=== PATIENT | male | born 1955 | race Caucasian/White ===

== ENCOUNTER 2022-08-24 02:16 | Day surgery (SDC) | payer MEDICARE, SELFPAY ==
[2022-08-18 16:06] VITALS: BMI 30.2
--- NOTE | 2022-08-21 16:23 | PM.HPGS ---
History of Present Illness History of Present Illness Consent: Risks, benefits, and alternatives have been discussed and questions answered. Patient agrees to proceed with procedure. Chief complaint: hx of colon polyps Narrative: Lambert Benavides is a 67 year old male Referred for colon cancer screening. 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 Review of Systems Review of Systems: All systems reviewed & are unremarkable except as noted in HPI and below PMFSH Surgical History Surgical History S/P aortic aneurysm repair Family History Family History Father Family history of diabetes mellitus in first degree relative Mother Family history of diabetes mellitus in first degree relative Other Carcinoma of colon Social History Social History Smoking status: Never smoker Second hand tobacco smoke exposure: No Alcohol intake: never Substance use: never Substance use type: does not use Last use: 30 years ago Living arrangements: with family Gender identity (if verbalized by the patient): Male Sexual Orientation (if Verbalized by the Patient): Straight or Heterosexual Spiritual care concerns: No Meds Home Medications and Allergies Home Medications Medication Instructions Recorded Confirmed Type aspirin 81 mg tablet,delayed 81 mg PO DAILY 08/17/19 08/18/22 History release cilostazol 100 mg tablet 100 mg PO BID 08/17/19 08/18/22 History hydrocodone 5 mg-acetaminophen 325 1 tablet PO Q8H PRN Pain 08/17/19 08/18/22 History mg tablet ([place]) multivitamin-ferrous 1 tablet PO DAILY 08/17/19 08/18/22 History fumarate-folic acid 18 mg-400 mcg tablet (Centrum Complete) rosuvastatin 40 mg tablet 40 mg PO DAILY 08/17/19 08/18/22 History empagliflozin 25 mg tablet 25 mg PO DAILY #90 tabs 11/17/21 08/18/22 Rx clopidogrel 75 mg tablet (Plavix) 75 mg PO DAILY #90 tabs 07/02/22 08/18/22 Rx epinephrine 0.3 mg/0.3 mL 0.3 mg IM ONCE PRN BEE 08/18/22 08/18/22 History injection, auto-injector (EpiPen 2-Addi) glimepiride 2 mg tablet 2 mg PO QAM 08/18/22 08/18/22 History metformin 500 mg tablet 1,000 mg PO QAM 08/18/22 08/18/22 History metoprolol tartrate 25 mg tablet 25 mg PO DAILY 08/18/22 08/18/22 History Allergies Allergy/AdvReac Type Severity Reaction Status Date / Time sitagliptin Allergy Intermediate Hives Verified 08/24/22 08:55 atorvastatin Allergy Unknown unknown Verified 08/24/22 08:55 Exam Const: General: alert Orientation/consciousness: patient oriented x3 Resp: Auscultation: clear to auscultation bilaterally Cardio: Rhythm: regular rhythm GI: GI Palp: Yes Soft to palpation and No Tenderness to palpation present (GI) Neuro: General: patient oriented x3 Assessment and Plan Assessment and plan (1) Colon cancer screening: Code(s): Z12.11 - Encounter for screening for malignant neoplasm of colon Status: Acute Assessment and Plan: Colonoscopy with possible biopsy or polypectomy or cautery or injection of substances.
[2022-08-24 08:56] VITALS: BP 140/78; PULSE 85; RESP 18; TEMP 36.2; O2SAT 97
[2022-08-24] MEDS: LACTATED RINGERS 1,000 ML 150 ML IV CONT (09:11)
[2022-08-24 09:12] LABS: Glucose Point of Care 155 mg/dl (65-105)
--- NOTE | 2022-08-24 09:49 | WPDANESEPPF ---
Anes - Initial Pre Proc Eval Procedure: Operation Date: 08/24/22 10:30 Proposed Procedures p Screening Colonoscopy - Alex Brewer MD Date/Time: 08/24/22 09:49 Surgeon: Alex Brewer MD Pre Op Diagnosis: hx of colon polyps Patient Data Age: 67 Gender: M Height: 1.83 m Weight: 97.2 kg Last Vital Signs Temp 97.1 F L 08/24/22 08:56 Pulse 85 08/24/22 08:56 Resp 18 08/24/22 08:56 BP 140/78 08/24/22 08:56 Pulse Ox 97 08/24/22 08:56 O2 Del Method Room Air 08/24/22 08:56 Allergies Allergy/AdvReac Type Severity Reaction Status Date / Time sitagliptin Allergy Intermediate Hives Verified 08/24/22 08:55 atorvastatin Allergy Unknown unknown Verified 08/24/22 08:55 Home Medications Medication Instructions Recorded Confirmed Type aspirin 81 mg tablet,delayed 81 mg PO DAILY 08/17/19 08/18/22 History release cilostazol 100 mg tablet 100 mg PO BID 08/17/19 08/18/22 History hydrocodone 5 mg-acetaminophen 325 1 tablet PO Q8H PRN Pain 08/17/19 08/18/22 History mg tablet ([place]) multivitamin-ferrous 1 tablet PO DAILY 08/17/19 08/18/22 History fumarate-folic acid 18 mg-400 mcg tablet (Centrum Complete) rosuvastatin 40 mg tablet 40 mg PO DAILY 08/17/19 08/18/22 History empagliflozin 25 mg tablet 25 mg PO DAILY #90 tabs 11/17/21 08/18/22 Rx clopidogrel 75 mg tablet (Plavix) 75 mg PO DAILY #90 tabs 07/02/22 08/18/22 Rx epinephrine 0.3 mg/0.3 mL 0.3 mg IM ONCE PRN BEE 08/18/22 08/18/22 History injection, auto-injector (EpiPen 2-Addi) glimepiride 2 mg tablet 2 mg PO QAM 08/18/22 08/18/22 History metformin 500 mg tablet 1,000 mg PO QAM 08/18/22 08/18/22 History metoprolol tartrate 25 mg tablet 25 mg PO DAILY 08/18/22 08/18/22 History Laboratory Tests 08/24/22 09:10 POC Capillary Glucose 155 mg/dl H mg/dl (65-105) Patient hx anesthesia problems: none Family hx anesthesia problems: none Results Review: All pre-operative results and documents have been reviewed as part of the pre-operative evaluation. [facility] Surgical History Surgical History S/P aortic aneurysm repair Family History Family History Father Family history of diabetes mellitus in first degree relative Mother Family history of diabetes mellitus in first degree relative Other Carcinoma of colon Social History Social History Smoking status: Never smoker Second hand tobacco smoke exposure: No Alcohol intake: never Substance use: never Substance use type: does not use Last use: 30 years ago Living arrangements: with family Gender identity (if verbalized by the patient): Male Sexual Orientation (if Verbalized by the Patient): Straight or Heterosexual Spiritual care concerns: No Anes - Eval Final PreProcedure Day of Procedure 08/24/22 09:49 Patient weight: normal Heart: regular rate and rhythm Lungs: clear to auscultation Airway: Mallampati scale class II Neurological: alert and oriented Last oral intake: >/= 8 hours ASA classification: III Emergent: no Anesthetic plan: proceed Anesthesia type and monitoring: general GIVS and standard monitoring Results Review: All pre-operative results and documents have been reviewed as part of the pre-operative evaluation. Informed Consent: The patient's anesthetic plan and its attendant risks and benefits were discussed with the patient/family/POA. Questions were solicited and answers provided to the satisfaction of the patient/family/POA.
[2022-08-24 10:32] VITALS: BP 96/69; PULSE 80; RESP 22; O2SAT 97
[2022-08-24 10:42] VITALS: BP 117/67; PULSE 73; RESP 35; O2SAT 97
[2022-08-24 10:52] VITALS: BP 124/80; PULSE 69; RESP 18; O2SAT 97
== END 2022-08-24 11:01 | disposition home or self-care (01) ==
PROVIDERS: PCP Family Medicine; Visit Provider Internal Medicine Gastroenterology
PROC: 0DJD8ZZ Inspection of Lower Intestinal Tract, Via Natural or Artificial Opening Endoscopic (ICD-10-PCS; CPT 45378; principal; 2022-08-24 10:30)
DX: Z12.11 Encounter for screening for malignant neoplasm of colon (principal); K57.30 Diverticulosis of large intestine without perforation or abscess without bleeding; D12.3 Benign neoplasm of transverse colon; K64.8 Other hemorrhoids; Z79.82 Long term (current) use of aspirin; Z79.02 Long term (current) use of antithrombotics/antiplatelets; Z79.84 Long term (current) use of oral hypoglycemic drugs
CPT/HCPCS: 45385; 82948; 88305; J2704; J7120